=== PATIENT | female | born 1985 | race American Indian/Alaskan Native ===

== ENCOUNTER 2016-11-10 03:13 | Emergency (ER) | payer MEDICAID ==
[2016-11-10 03:33] VITALS: BP 131/74
[2016-11-10 04:03] LABS: Basophils % (Auto) 0.6 % (0.0-1.8); Eosinophils % (Auto) 2.1 % (0.0-4.3); Hematocrit 34.7 % (30.3-42.9); Hemoglobin 11.3 gm/dl (10.1-14.3); Mean Corpuscular HGB Conc 33 % (30-34); Mean Corpuscular Hemoglobin 29 pg (28-32); Mean Corpuscular Volume 89 fl (79-97); Platelet Count 281 K/mm3 (140-440); Red Blood Count 3.91 M/mm3 (3.65-5.03); Red Cell Distribution Width 12.8 % (13.2-15.2); White Blood Count 7.7 K/mm3 (4.5-11.0)
[2016-11-10 14:49] LABS: Alanine Aminotransferase 10 units/L (7-56); Albumin 3.9 g/dL (3.9-5); Albumin/Globulin Ratio 1.7 %; Alkaline Phosphatase 32 units/L (35-129); Bilirubin,Total < 0.2 mg/dL (0.1-1.2); Blood Urea Nitrogen 12 mg/dL (7-17); Calcium 8.4 mg/dL (8.4-10.2); Carbon Dioxide 26 mmol/L (22-30); Glucose 105 mg/dL (65-100); Lipase 25 units/L (13-60); Potassium 3.8 mmol/L (3.6-5.0); Sodium 140 mmol/L (137-145); Total Protein 6.2 g/dL (6.3-8.2)
[2016-11-10 15:31] LABS: Anion Gap 14 mmol/L
--- NOTE | 2016-11-10 15:31 | XRay Report ---
ROUTINE CHEST, TWO VIEWS: HISTORY: chest pain. The trachea, heart, mediastinal contour, lung henriquez and bony thorax are unremarkable. IMPRESSION: Unremarkable chest x-ray.
--- NOTE | 2016-11-15 16:41 | ED Elopement Review ---
ED Pt Elopement review - Results review Lab results: Laboratory Tests 11/10/16 11/10/16 11/10/16 03:48 03:48 03:48 WBC 7.7 RBC 3.91 Hgb 11.3 Hct 34.7 MCV 89 MCH 29 MCHC 33 RDW 12.8 L Plt Count 281 Lymph % (Auto) 23.6 [place] % (Auto) 6.0 Eos % (Auto) 2.1 Baso % (Auto) 0.6 Lymph # 1.8 [place] # 0.5 Eos # 0.2 Baso # 0.0 Seg Neutrophils % 67.7 Seg Neutrophils # 5.2 Sodium 140 Potassium 3.8 Chloride 104.0 Carbon Dioxide 26 Anion Gap 14 BUN 12 Creatinine 0.8 Estimated GFR > 60 BUN/Creatinine Ratio 15.00 Glucose 105 H Calcium 8.4 Total Bilirubin < 0.2 AST 12 ALT 10 Alkaline Phosphatase 32 L Troponin T < 0.010 Total Protein 6.2 L Albumin 3.9 Albumin/Globulin Ratio 1.7 Lipase 25 HCG, Qual Negative - Call Back decision Pt Call Back Decision: No action required
== END 2016-11-11 02:55 | disposition left against medical advice (07) ==
LOC: ED 03:13
DX: R51 Headache (principal); R07.9 Chest pain, unspecified; R11.10 Vomiting, unspecified; M54.2 Cervicalgia; E11.9 Type 2 diabetes mellitus without complications; Z88.8 Allergy status to other drugs, medicaments and biological substances; Z88.0 Allergy status to penicillin; Z53.21 Procedure and treatment not carried out due to patient leaving prior to being seen by health care provider
CPT/HCPCS: 36415; 71020; 80053; 83690; 84484; 84703; 85025; 93005; 93010